=== PATIENT | male | born 1985 | race Caucasian/White ===

== ENCOUNTER → 2020-06-15 | Outpatient (CLI) | payer BC, OTHER | LOC: EXRD 05-18 14:00 | DX: E04.1 Nontoxic single thyroid nodule (principal); R22.1 Localized swelling, mass and lump, neck | CPT/HCPCS: 76536 ==

== ENCOUNTER → 2020-07-15 | Outpatient (CLI) | payer BC, OTHER | LOC: RAD 10:03 | DX: M25.572 Pain in left ankle and joints of left foot (principal); M79.672 Pain in left foot; M79.89 Other specified soft tissue disorders | CPT/HCPCS: 73610; 73630 ==

== ENCOUNTER → 2020-10-17 | Outpatient (CLI) | payer BC, OTHER ==
[2020-10-17 10:27] LABS: HEMOGLOBIN 14.3 gm/dl (14.0-17.5); RED BLOOD COUNT 5.3 M/UL (4.20-5.50); WHITE BLOOD COUNT 6.3 K/UL (4.5-11.0)
== END ==
LOC: LAB 09:41
PROVIDERS: Nurse Practitioner Family
DX: Z01.812 Encounter for preprocedural laboratory examination (principal)
CPT/HCPCS: 36415; 85025; 85610; 85730

== ENCOUNTER → 2020-10-20 | Outpatient (CLI) | payer BC, OTHER | LOC: US 08:47 | DX: E04.1 Nontoxic single thyroid nodule (principal); M25.872 Other specified joint disorders, left ankle and foot | CPT/HCPCS: 76882 ==

== ENCOUNTER → 2021-12-11 | Outpatient (CLI) | payer BC | LOC: EXRD 12-04 13:00 | DX: E04.1 Nontoxic single thyroid nodule (principal); R13.10 Dysphagia, unspecified | CPT/HCPCS: 76536 ==

== ENCOUNTER → 2022-01-04 | Outpatient (CLI) | payer BC | LOC: US 09:42 | DX: E04.2 Nontoxic multinodular goiter (principal) ==

== ENCOUNTER → 2022-01-11 | Outpatient (CLI) | payer BC ==
[2022-01-11 17:53] LABS: BUN/CREATININE RATIO 19 (0-10)
== END ==
LOC: LAB 16:52
PROVIDERS: Nurse Practitioner Family
DX: E83.52 Hypercalcemia (principal); I10 Essential (primary) hypertension; E87.6 Hypokalemia
CPT/HCPCS: 36415; 80048; 83970